=== PATIENT | female | born 1960 | race Caucasian/White ===

== ENCOUNTER 2020-05-25 11:51 | Inpatient (IN) | payer MEDICARE ==
[~2020-05-25] VITALS: Ht 157.5 cm; Wt 76.7 kg
[~2020-05-25 11:51] MED LIST: ASPIR 8181 MG PO; COZAAR 50 MG TA50 M2 PO; HYDROCHLOROTH12.5 M1 PO; HYDROCODON-ACE1 EAC7 PO; IBUPROFEN 200200 M1 PO; LOSARTAN-HCTZ1 EACH PO; PERCOCET PO; PLAVIX 75 MG TA75 MG PO; SANTYL OINTMENT30 G1 TP
[2020-05-25 12:06] VITALS: BP 150/76
[2020-05-25] MEDS ORDERED: KEFLEX500 M1 PO (12:11)
[2020-05-25] MEDS ORDERED: HYDROCHLOROTH12.5 M1 PO (12:12)
[2020-05-25 12:51] LABS: HEMATOCRIT 42.9 % (37.0-47.0); HEMOGLOBIN 14.5 gm/dL (12.0-15.0); MCH 30.6 pg (26.0-34.0); MCHC 33.9 g/dL (28.0-37.0); MCV 90.3 fL (80.0-100.0); MPV 7.7 fl. (7.2-11.1); NUCLEATED RBCS 0 /100WBC; PLATELET COUNT* 404 thou/uL (150-400); RBC 4.75 mil/uL (4.20-5.00); RDW-CV 14.4 % (10.5-14.5); WBC 13.5 thou/uL (4.0-11.0)
[2020-05-25 13:03] LABS: APTT 23.6 Seconds (25.0-31.3); INR 0.9; PROTIME 10.1 Seconds (9.20-11.50)
[2020-05-25 13:10] LABS: ABSOLUTE LYMPHOCYTES 0.7 thou/uL (0.8-5.3); ABSOLUTE MONOCYTES 0.4 thou/uL (0.0-1.2); ABSOLUTE NEUTROPHILS 12.4 thou/uL (1.6-8.1); ANISOCYTOSIS 1+; PLATELET ESTIMATE INCREASED; POIKILOCYTOSIS 1+
[2020-05-25 13:21] LABS: CALCIUM 9.7 mg/dL (8.5-10.1); CREATININE 0.7 mg/dL (0.6-1.3); POTASSIUM 3.6 mmol/L (3.5-5.1)
[2020-05-25 13:26] LABS: ALBUMIN 3.5 g/dL (3.4-5.0); TOTAL BILIRUBIN 0.3 mg/dL (<0.1-1.0); TOTAL PROTEIN 7.6 g/dL (6.4-8.2)
[2020-05-25 14:53] VITALS: BP 144/72
[2020-05-25 15:10] VITALS: BP 149/79
--- NOTE | 2020-05-25 16:34 | EKG ---
[place] [address] ELECTROCARDIOGRAM REPORT Name: JERMAIN OLSON Room: [address] ADM IN [facility]#: [id number] Admission: 05/25/20 Attend Phys: Rafael Oro, Discharge: Date of : 56 Date of Service: 05/25/20 1313 Report #: [id number] THIS REPORT FOR: //name// [facility] ED Test Date: 2020-05-25 Test Time: 13:13:41 Pat Name: JERMAIN OLSON Department: Room: 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: : 1960 Requested By: Kim Cyr Order Number: [id number] MD: Bandar Perdomo Measurements Intervals [place] Rate: 111 P: 71 LA: 146 QRS: 104 QRSD: 88 T: 58 QT: 343 QTc: 466 Interpretive Statements Sinus tachycardia nonspecific t wave changes Right axis deviation Borderline low voltage, extremity leads No previous ECG available for comparison Electronically Signed On 05-25-2020 16:34:00 SENIOR FACILITIES MANAGER by Bandar Perdomo [email or web address] <ELECTRONICALLY SIGNED> By: Bandar Perdomo MD, FAC 05/25/20 1634 1313 1313 Bandar Perdomo MD, [facility] /EPI
[2020-05-25 20:00] VITALS: BP 149/79
[2020-05-25 21:26] LABS: URINE BILIRUBIN NEGATIVE (Negative); URINE BLOOD NEGATIVE (Negative); URINE CLARITY CLEAR; URINE COLOR YELLOW; URINE GLUCOSE-RANDOM NEGATIVE (Negative); URINE KETONES NEGATIVE (Negative); URINE LEUKOCYTES-REFLEX NEGATIVE (Negative); URINE NITRITE-REFLEX NEGATIVE (Negative); URINE PROTEIN NEGATIVE (Negative); URINE UROBILINOGEN 0.2 E.U./dl (0.2-1.0)
[2020-05-26 04:22] LABS: HEMATOCRIT 39.9 % (37.0-47.0); HEMOGLOBIN 13.3 gm/dL (12.0-15.0); MCH 30.3 pg (26.0-34.0); MCHC 33.3 g/dL (28.0-37.0); MCV 90.9 fL (80.0-100.0); MPV 7.5 fl. (7.2-11.1); RBC 4.39 mil/uL (4.20-5.00); RDW-CV 14.4 % (10.5-14.5); WBC 13.1 thou/uL (4.0-11.0)
[2020-05-26 04:35] LABS: ANION GAP 5 mmol/L (7-16); BUN 8 mg/dL (7-18); CALCIUM 9.2 mg/dL (8.5-10.1); CHLORIDE 96 mmol/L (98-107); CHOLESTEROL 196 mg/dL (<200); CO2 31 mmol/L (21-32); CREATININE 0.7 mg/dL (0.6-1.3); GLUCOSE 109 mg/dL (70-99); HDL CHOLESTEROL 48 mg/dL (>40); LDL CHOLESTEROL 129 mg/dL (<100); MAGNESIUM 1.7 mg/dL (1.8-2.4); POTASSIUM 3.4 mmol/L (3.5-5.1); SODIUM 132 mmol/L (136-145); TC:HDL 4.1 Ratio (Not establshd); TRIGLYCERIDE 96 mg/dL (<150); VLDL 19 mg/dL (<40)
[2020-05-26 04:53] LABS: SERUM ASSESSMENT CLEAR
[2020-05-26 08:30] VITALS: BP 147/74
[2020-05-26 16:23] VITALS: BP 123/79
[2020-05-26 20:00] VITALS: BP 148/96
[2020-05-27] VITALS (13 sets, daily range): BP systolic 100–169; BP diastolic 41–102
[2020-05-27 05:10] LABS: MAGNESIUM 2.1 mg/dL (1.8-2.4); POTASSIUM 4.1 mmol/L (3.5-5.1)
[2020-05-28 01:16] VITALS: BP 136/66
[2020-05-28 04:40] LABS: HEMATOCRIT 39.8 % (37.0-47.0); HEMOGLOBIN 13.2 gm/dL (12.0-15.0); MCH 30.2 pg (26.0-34.0); MCHC 33.2 g/dL (28.0-37.0); MPV 7.2 fl. (7.2-11.1); RBC 4.38 mil/uL (4.20-5.00); RDW-CV 14.5 % (10.5-14.5); WBC 11.4 thou/uL (4.0-11.0)
[2020-05-28 05:00] LABS: CALCIUM 9.1 mg/dL (8.5-10.1); CREATININE 0.6 mg/dL (0.6-1.3); MAGNESIUM 1.9 mg/dL (1.8-2.4); POTASSIUM 4.3 mmol/L (3.5-5.1)
[2020-05-28 07:40] VITALS: BP 172/90
[2020-05-28 12:00] VITALS: BP 130/70
[2020-05-28 16:00] VITALS: BP 130/60
[2020-05-28 20:30] VITALS: BP 160/68
[2020-05-29 04:25] LABS: ABSOLUTE BASOPHILS 0.1 thou/uL (0.0-0.2); ABSOLUTE EOSINOPHILS 0.1 thou/uL (0.0-0.7); ABSOLUTE LYMPHOCYTES 1.7 thou/uL (0.8-5.3); ABSOLUTE MONOCYTES 0.8 thou/uL (0.0-1.2); ABSOLUTE NEUTROPHILS 8.9 thou/uL (1.6-8.1); BASOPHILS 0.4 %; EOSINOPHILS 0.7 %; HEMATOCRIT 40.1 % (37.0-47.0); HEMOGLOBIN 13.1 gm/dL (12.0-15.0); LYMPHOCYTES 14.7 %; MCH 29.7 pg (26.0-34.0); MCHC 32.7 g/dL (28.0-37.0); MCV 90.8 fL (80.0-100.0); MONOCYTES 7.2 %; MPV 7.3 fl. (7.2-11.1); NUCLEATED RBCS 0 /100WBC; PLATELET COUNT* 332 thou/uL (150-400); RBC 4.41 mil/uL (4.20-5.00); RDW-CV 14.5 % (10.5-14.5); WBC 11.5 thou/uL (4.0-11.0)
[2020-05-29 04:42] LABS: ALBUMIN 3.1 g/dL (3.4-5.0); CREATININE 0.7 mg/dL (0.6-1.3); POTASSIUM 3.8 mmol/L (3.5-5.1); TOTAL BILIRUBIN 0.3 mg/dL (<0.1-1.0); TOTAL PROTEIN 6.8 g/dL (6.4-8.2)
[2020-05-29 08:05] VITALS: BP 169/59
[2020-05-29 16:29] VITALS: BP 121/61
[2020-05-29 21:00] VITALS: BP 136/80
[2020-05-30 04:33] LABS: ABSOLUTE BASOPHILS 0.1 thou/uL (0.0-0.2); ABSOLUTE EOSINOPHILS 0.1 thou/uL (0.0-0.7); ABSOLUTE LYMPHOCYTES 1.7 thou/uL (0.8-5.3); ABSOLUTE MONOCYTES 0.8 thou/uL (0.0-1.2); ABSOLUTE NEUTROPHILS 9.1 thou/uL (1.6-8.1); BASOPHILS 0.6 %; HEMATOCRIT 40.8 % (37.0-47.0); HEMOGLOBIN 13.7 gm/dL (12.0-15.0); LYMPHOCYTES 14.5 %; MCH 30.2 pg (26.0-34.0); MCHC 33.4 g/dL (28.0-37.0); MCV 90.4 fL (80.0-100.0); MONOCYTES 6.9 %; NUCLEATED RBCS 0 /100WBC; PLATELET COUNT* 340 thou/uL (150-400); RBC 4.52 mil/uL (4.20-5.00); RDW-CV 14.3 % (10.5-14.5); WBC 11.8 thou/uL (4.0-11.0)
[2020-05-30 04:48] LABS: CALCIUM 9.4 mg/dL (8.5-10.1); CREATININE 0.8 mg/dL (0.6-1.3); POTASSIUM 3.9 mmol/L (3.5-5.1)
[2020-05-30 08:05] VITALS: BP 134/66
[2020-05-30] MEDS ORDERED: MINOCYCLINE HC100 M2 PO (11:23)
[2020-05-30] MEDS ORDERED: LIPITOR40 MG PO (11:24)
[2020-05-30] MEDS ORDERED: PLAVIX 75 MG TA75 M1 PO (11:24)
[2020-05-30 15:34] VITALS: BP 134/66
[2020-05-30 15:56] VITALS: BP 134/66
[2020-05-30 16:06] VITALS: BP 134/66
[2020-05-30 16:47] VITALS: BP 134/66
== END 2020-05-30 16:30 | disposition home health service (06) | DRG 253 ==
LOC: M.ERS 11:51 → M.3W 12:57 → M.TBA-ER 12:57 → M.3W 15:00
PROVIDERS: Internal Medicine; Nurse Practitioner Family; ADMIT Internal Medicine; ATTEND Internal Medicine
PROC: B41D1ZZ Fluoroscopy of Aorta and Bilateral Lower Extremity Arteries using Low Osmolar Contrast (ICD-10-PCS; principal; 2020-05-25)
PROC: B4141ZZ Fluoroscopy of Superior Mesenteric Artery using Low Osmolar Contrast (ICD-10-PCS; principal; 2020-05-25)
PROC: B4151ZZ Fluoroscopy of Inferior Mesenteric Artery using Low Osmolar Contrast (ICD-10-PCS; principal; 2020-05-25)
PROC: 047D3DZ Dilation of Left Common Iliac Artery with Intraluminal Device, Percutaneous Approach (ICD-10-PCS; principal; 2020-05-25)
PROC: B4181ZZ Fluoroscopy of Bilateral Renal Arteries using Low Osmolar Contrast (ICD-10-PCS; principal; 2020-05-25)
PROC: 047L3DZ Dilation of Left Femoral Artery with Intraluminal Device, Percutaneous Approach (ICD-10-PCS; principal; 2020-05-25)
DX: I70.203 Unspecified atherosclerosis of native arteries of extremities, bilateral legs (principal); L03.116 Cellulitis of left lower limb; R65.10 Systemic inflammatory response syndrome (SIRS) of non-infectious origin without acute organ dysfunction; I10 Essential (primary) hypertension; R73.03 Prediabetes; E78.5 Hyperlipidemia, unspecified; L97.529 Non-pressure chronic ulcer of other part of left foot with unspecified severity; F17.210 Nicotine dependence, cigarettes, uncomplicated; E66.9 Obesity, unspecified; Z20.822 Contact with and (suspected) exposure to COVID-19; Z92.3 Personal history of irradiation; Z85.89 Personal history of malignant neoplasm of other organs and systems; Z92.21 Personal history of antineoplastic chemotherapy; Z79.82 Long term (current) use of aspirin; Z79.01 Long term (current) use of anticoagulants; Z79.899 Other long term (current) drug therapy; Z88.5 Allergy status to narcotic agent; Z68.30 Body mass index [BMI] 30.0-30.9, adult

== ENCOUNTER → 2020-06-01 | Outpatient (CLI) | payer MEDICARE ==
[~2020-06-01] MED LIST changes: +KEFLEX500 M1 PO; +LIPITOR40 MG PO; +MINOCYCLINE HC100 M2 PO; +PLAVIX 75 MG TA75 M1 PO
== END ==
LOC: M.WC 13:46
PROVIDERS: ATTEND Podiatrist Foot & Ankle Surgery
DX: E11.621 Type 2 diabetes mellitus with foot ulcer (principal); I70.245 Atherosclerosis of native arteries of left leg with ulceration of other part of foot; L97.522 Non-pressure chronic ulcer of other part of left foot with fat layer exposed; L03.116 Cellulitis of left lower limb; E11.51 Type 2 diabetes mellitus with diabetic peripheral angiopathy without gangrene; E11.40 Type 2 diabetes mellitus with diabetic neuropathy, unspecified; I10 Essential (primary) hypertension; M48.00 Spinal stenosis, site unspecified; M19.90 Unspecified osteoarthritis, unspecified site; F17.200 Nicotine dependence, unspecified, uncomplicated; Z95.820 Peripheral vascular angioplasty status with implants and grafts; Z79.82 Long term (current) use of aspirin

== ENCOUNTER → 2020-06-15 | Outpatient (CLI) | payer MEDICARE | LOC: M.WC 13:49 | PROVIDERS: ATTEND Podiatrist Foot & Ankle Surgery | DX: E11.621 Type 2 diabetes mellitus with foot ulcer (principal); I70.245 Atherosclerosis of native arteries of left leg with ulceration of other part of foot; L97.522 Non-pressure chronic ulcer of other part of left foot with fat layer exposed; L03.116 Cellulitis of left lower limb; E11.51 Type 2 diabetes mellitus with diabetic peripheral angiopathy without gangrene; E11.40 Type 2 diabetes mellitus with diabetic neuropathy, unspecified; I10 Essential (primary) hypertension; M48.00 Spinal stenosis, site unspecified; M19.90 Unspecified osteoarthritis, unspecified site; F17.200 Nicotine dependence, unspecified, uncomplicated; Z95.820 Peripheral vascular angioplasty status with implants and grafts; Z79.82 Long term (current) use of aspirin ==

== ENCOUNTER → 2020-07-20 | Outpatient (CLI) | payer MEDICARE | LOC: M.WC 13:44 | PROVIDERS: ATTEND Podiatrist Foot & Ankle Surgery | DX: E11.621 Type 2 diabetes mellitus with foot ulcer (principal); I70.245 Atherosclerosis of native arteries of left leg with ulceration of other part of foot; L97.522 Non-pressure chronic ulcer of other part of left foot with fat layer exposed; L03.116 Cellulitis of left lower limb; E11.51 Type 2 diabetes mellitus with diabetic peripheral angiopathy without gangrene; E11.40 Type 2 diabetes mellitus with diabetic neuropathy, unspecified; I10 Essential (primary) hypertension; M48.00 Spinal stenosis, site unspecified; M19.90 Unspecified osteoarthritis, unspecified site; F17.200 Nicotine dependence, unspecified, uncomplicated; Z95.820 Peripheral vascular angioplasty status with implants and grafts; Z79.82 Long term (current) use of aspirin ==

== ENCOUNTER → 2020-08-03 | Outpatient (CLI) | payer MEDICARE | LOC: M.WC 12:44 | PROVIDERS: ATTEND Podiatrist Foot & Ankle Surgery | DX: I70.245 Atherosclerosis of native arteries of left leg with ulceration of other part of foot (principal); E11.621 Type 2 diabetes mellitus with foot ulcer; L97.522 Non-pressure chronic ulcer of other part of left foot with fat layer exposed; L03.116 Cellulitis of left lower limb; T81.89XD Other complications of procedures, not elsewhere classified, subsequent encounter; E11.51 Type 2 diabetes mellitus with diabetic peripheral angiopathy without gangrene; M48.00 Spinal stenosis, site unspecified; M51.26 Other intervertebral disc displacement, lumbar region; K64.8 Other hemorrhoids; I10 Essential (primary) hypertension; F17.290 Nicotine dependence, other tobacco product, uncomplicated; Z85.44 Personal history of malignant neoplasm of other female genital organs; Z79.82 Long term (current) use of aspirin; Z79.899 Other long term (current) drug therapy; Y83.8 Other surgical procedures as the cause of abnormal reaction of the patient, or of later complication, without mention of misadventure at the time of the procedure ==

== ENCOUNTER → 2020-08-17 | Outpatient (CLI) | payer MEDICARE | LOC: M.WC 13:33 | PROVIDERS: ATTEND Podiatrist Foot & Ankle Surgery | DX: T81.89XD Other complications of procedures, not elsewhere classified, subsequent encounter (principal); E11.621 Type 2 diabetes mellitus with foot ulcer; I70.245 Atherosclerosis of native arteries of left leg with ulceration of other part of foot; L97.522 Non-pressure chronic ulcer of other part of left foot with fat layer exposed; L03.116 Cellulitis of left lower limb; E11.51 Type 2 diabetes mellitus with diabetic peripheral angiopathy without gangrene; E11.40 Type 2 diabetes mellitus with diabetic neuropathy, unspecified; I10 Essential (primary) hypertension; M48.00 Spinal stenosis, site unspecified; M51.26 Other intervertebral disc displacement, lumbar region; F17.290 Nicotine dependence, other tobacco product, uncomplicated; Z85.44 Personal history of malignant neoplasm of other female genital organs; Z95.828 Presence of other vascular implants and grafts; Y83.8 Other surgical procedures as the cause of abnormal reaction of the patient, or of later complication, without mention of misadventure at the time of the procedure ==

== ENCOUNTER → 2020-08-31 | Outpatient (CLI) | payer MEDICARE | LOC: M.WC 13:41 | PROVIDERS: ATTEND Podiatrist Foot & Ankle Surgery | DX: E11.621 Type 2 diabetes mellitus with foot ulcer (principal); I70.245 Atherosclerosis of native arteries of left leg with ulceration of other part of foot; L97.522 Non-pressure chronic ulcer of other part of left foot with fat layer exposed; L03.116 Cellulitis of left lower limb; E11.51 Type 2 diabetes mellitus with diabetic peripheral angiopathy without gangrene; E11.40 Type 2 diabetes mellitus with diabetic neuropathy, unspecified; I10 Essential (primary) hypertension; M48.00 Spinal stenosis, site unspecified; M51.26 Other intervertebral disc displacement, lumbar region; F17.290 Nicotine dependence, other tobacco product, uncomplicated; Z85.44 Personal history of malignant neoplasm of other female genital organs; Z95.828 Presence of other vascular implants and grafts ==

== ENCOUNTER → 2020-09-14 | Outpatient (CLI) | payer MEDICARE | LOC: M.WC 13:48 | PROVIDERS: ATTEND Podiatrist Foot & Ankle Surgery | DX: E11.621 Type 2 diabetes mellitus with foot ulcer (principal); I70.245 Atherosclerosis of native arteries of left leg with ulceration of other part of foot; L97.522 Non-pressure chronic ulcer of other part of left foot with fat layer exposed; L03.116 Cellulitis of left lower limb; E11.51 Type 2 diabetes mellitus with diabetic peripheral angiopathy without gangrene; E11.40 Type 2 diabetes mellitus with diabetic neuropathy, unspecified; I10 Essential (primary) hypertension; M48.00 Spinal stenosis, site unspecified; M51.26 Other intervertebral disc displacement, lumbar region; F17.290 Nicotine dependence, other tobacco product, uncomplicated; Z85.44 Personal history of malignant neoplasm of other female genital organs; Z95.828 Presence of other vascular implants and grafts ==

== ENCOUNTER → 2020-09-28 | Outpatient (CLI) | payer MEDICARE | LOC: M.WC 13:15 | PROVIDERS: ATTEND Podiatrist Foot & Ankle Surgery | DX: E11.621 Type 2 diabetes mellitus with foot ulcer (principal); I70.245 Atherosclerosis of native arteries of left leg with ulceration of other part of foot; L97.522 Non-pressure chronic ulcer of other part of left foot with fat layer exposed; L03.116 Cellulitis of left lower limb; E11.51 Type 2 diabetes mellitus with diabetic peripheral angiopathy without gangrene; E11.40 Type 2 diabetes mellitus with diabetic neuropathy, unspecified; I10 Essential (primary) hypertension; M48.00 Spinal stenosis, site unspecified; M51.26 Other intervertebral disc displacement, lumbar region; F17.290 Nicotine dependence, other tobacco product, uncomplicated; Z85.44 Personal history of malignant neoplasm of other female genital organs; Z95.828 Presence of other vascular implants and grafts ==

== ENCOUNTER 2020-10-07 13:19 | Emergency (ER) | payer MEDICARE ==
[~2020-10-07] VITALS: Ht 157.5 cm; Wt 68.0 kg
[2020-10-07] MEDS ORDERED: METOCLOPRAMIDE 55 M1 PO (13:32)
[2020-10-07] MEDS ORDERED: PERCOCET 5-3251 EACH PO ×2 (13:34→13:42)
[2020-10-07 14:37] VITALS: BP 194/77
== END 2020-10-07 14:38 | disposition home or self-care (01) ==
LOC: M.ERS 13:19
DX: M54.5 Low back pain (principal); G89.29 Other chronic pain; I10 Essential (primary) hypertension; I73.9 Peripheral vascular disease, unspecified; F17.210 Nicotine dependence, cigarettes, uncomplicated; Z98.890 Other specified postprocedural states; Z85.44 Personal history of malignant neoplasm of other female genital organs; Z79.899 Other long term (current) drug therapy; Z79.82 Long term (current) use of aspirin; Z88.5 Allergy status to narcotic agent

== ENCOUNTER → 2020-10-26 | Outpatient (CLI) | payer MEDICARE ==
[~2020-10-26] MED LIST changes: +METOCLOPRAMIDE 55 M1 PO; +PERCOCET 5-3251 EACH PO
== END ==
LOC: M.WC 13:15
PROVIDERS: ATTEND Podiatrist Foot & Ankle Surgery
DX: E11.621 Type 2 diabetes mellitus with foot ulcer (principal); I70.245 Atherosclerosis of native arteries of left leg with ulceration of other part of foot; L97.522 Non-pressure chronic ulcer of other part of left foot with fat layer exposed; L03.116 Cellulitis of left lower limb; E11.51 Type 2 diabetes mellitus with diabetic peripheral angiopathy without gangrene; E11.40 Type 2 diabetes mellitus with diabetic neuropathy, unspecified; I10 Essential (primary) hypertension; M48.00 Spinal stenosis, site unspecified; M19.90 Unspecified osteoarthritis, unspecified site; F17.290 Nicotine dependence, other tobacco product, uncomplicated; Z85.44 Personal history of malignant neoplasm of other female genital organs; Z95.828 Presence of other vascular implants and grafts

== ENCOUNTER → 2020-11-16 | Outpatient (CLI) | payer MEDICARE | LOC: M.WC 12:41 | PROVIDERS: ATTEND Podiatrist Foot & Ankle Surgery | DX: E11.621 Type 2 diabetes mellitus with foot ulcer (principal); I70.245 Atherosclerosis of native arteries of left leg with ulceration of other part of foot; L97.522 Non-pressure chronic ulcer of other part of left foot with fat layer exposed; L03.116 Cellulitis of left lower limb; E11.51 Type 2 diabetes mellitus with diabetic peripheral angiopathy without gangrene; E11.40 Type 2 diabetes mellitus with diabetic neuropathy, unspecified; I10 Essential (primary) hypertension; M48.00 Spinal stenosis, site unspecified; M19.90 Unspecified osteoarthritis, unspecified site; F17.290 Nicotine dependence, other tobacco product, uncomplicated; Z85.44 Personal history of malignant neoplasm of other female genital organs; Z95.828 Presence of other vascular implants and grafts ==

== ENCOUNTER → 2020-12-05 | Outpatient (CLI) | payer MEDICARE | LOC: M.WC 12:57 | PROVIDERS: ATTEND Podiatrist Foot & Ankle Surgery | DX: E11.621 Type 2 diabetes mellitus with foot ulcer (principal); I70.245 Atherosclerosis of native arteries of left leg with ulceration of other part of foot; L97.522 Non-pressure chronic ulcer of other part of left foot with fat layer exposed; L03.116 Cellulitis of left lower limb; E11.51 Type 2 diabetes mellitus with diabetic peripheral angiopathy without gangrene; E11.40 Type 2 diabetes mellitus with diabetic neuropathy, unspecified; I10 Essential (primary) hypertension; M48.00 Spinal stenosis, site unspecified; M19.90 Unspecified osteoarthritis, unspecified site; F17.290 Nicotine dependence, other tobacco product, uncomplicated; Z85.44 Personal history of malignant neoplasm of other female genital organs; Z95.828 Presence of other vascular implants and grafts ==